=== PATIENT | female | born 1980 | race Caucasian/White ===

== ENCOUNTER 2023-10-24 09:38 | Outpatient (OUT) | payer OTHER, SELFPAY ==
--- NOTE | 2023-10-24 09:47 | US_ITS ---
The [address] [address] Patient Name: ANDREAS JARRELL MRN: [id number] date: 1980 Sex: F Assigned Patient Location: US Current Patient Location: Accession/Order Number: [id number] Exam Date: 10/24/2023 09:50 Report Date: 10/24/2023 10:38 At the request of: KERI HSU Procedure: US pelvis w/ transvaginal EXAM: Pelvic ultrasound HISTORY: . Irregular Menses N92.6 . COMPARISON: None. TECHNIQUE: Transabdominal and transvaginal scanning was performed FINDINGS: Scanning of the pelvis demonstrates an anteverted uterus measuring 11.1 x 5.5 x 7.7 cm. Endometrial complex measures 4 mm. Right ovary measures 2.6 x 3 x 1.5 cm. Color-flow is noted. No masses are noted. Follicles are noted. Left ovary measures 2.1 x 1.9 x 2.4 cm. Color-flow is noted. No masses are noted. No fluid is noted in the cul-de-sac. US/US pelvis w/ transvaginal IMPRESSION: Normal ultrasound of the pelvis. Electronically authenticated by: ESTHER JACOBSON Date: 10/24/2023 10:38
== END 2023-10-24 09:39 | disposition home or self-care (01) ==
LOC: US 09:41
PROVIDERS: PCP Family Medicine; Visit Provider Family Medicine
DX: N92.6 Irregular menstruation, unspecified (principal)
CPT/HCPCS: 76830; 76856